=== PATIENT | male | born 1950 | race Caucasian/White ===

== ENCOUNTER → 2017-06-20 | Outpatient (CLI) | payer OTHER ==
[~2017-06-20] MED LIST: CIPR-249 PO; NEXI20CA PO; ROXI1TAB2 PO; SYNT50TA PO; TYLE325T5 PO
--- NOTE | 2017-06-20 14:03 | REP ---
Clinical: Varicose veins . Technique: Segura scale and color Doppler evaluation using linear high frequency transducer with reflux evaluation. Findings: Ultrasound examination of the right and left lower extremity deep venous structures from the common femoral vein to the popliteal vein demonstrates normal compressibility flow and wave patterns in response to respiration and augmentation. There is no evidence for deep venous thrombosis. Reflux study of the right lower extremity demonstrates nonocclusive thrombus in the right greater saphenous vein along with multiple large collateral vessels and severe reflux. Specifically, proximal greater saphenous vein measures 6.8 mm diameter with reflux duration 4.5 seconds; the mid greater saphenous vein measures 5.9 mm diameter with reflux duration 4.4 seconds; distal greater saphenous vein measures 7.7 mm with reflux duration 4.8 seconds. The lesser saphenous vein measures 5.1 mm diameter with reflux duration 5.1 seconds, and reflux was also identified through the deep system including common femoral vein, superficial femoral vein and popliteal vein. Reflux evaluation of the left lower extremity demonstrates minimal reflux through the common femoral vein and severe reflux through the greater saphenous vein and collateral vessels. Specifically, proximal greater saphenous vein measures 9.1 mm diameter with reflux duration 3.8 seconds; the mid greater saphenous vein measures 7.7 mm diameter with reflux duration 4.4 seconds; greater saphenous vein at the knee measures 7.4 mm with reflux duration 3.7 seconds. No reflux noted through the lesser saphenous vein, superficial femoral vein or popliteal vein. Impression: No evidence for deep venous thrombosis. Severe bilateral reflux as described above. Signed by Sebas Medina MD 06/20/2017 01:55 P
== END ==
LOC: M RAD 12:07
PROVIDERS: ATTEND Surgery Vascular Surgery
DX: I87.2 Venous insufficiency (chronic) (peripheral) (principal)

== ENCOUNTER 2017-09-28 13:32 | Day surgery (SDC) | payer OTHER ==
[~2017-09-28 13:32] MED LIST changes: -CIPR-249 PO; +LIDOCAINE W/EPINEPHRINE 1% 20ML VIAL As Ordered; -NEXI20CA PO; -ROXI1TAB2 PO; -SYNT50TA PO; -TYLE325T5 PO
[2017-09-28] MEDS: LR 1,000 ML IV ×2 (14:19)
[2017-09-28] MEDS ORDERED: MIDAZOLAM INJ 2 MG/2 ML VIAL (J2250) As Ordered ×2 (14:35)
[2017-09-28] MEDS ORDERED: LIDOCAINE 2% INJ 100 MG/5 ML SDV (FOR ANES.) As Ordered ×4 (14:35→15:37)
[2017-09-28] MEDS ORDERED: fentaNYL 100 MCG/2 ML INJECTION (J3010) As Ordered ×2 (14:35)
[2017-09-28] MEDS ORDERED: PROPOFOL 200 MG/20 ML VIAL As Ordered ×4 (14:35→15:37)
[2017-09-28] MEDS: LIDOCAINE 1% SDV INJ 30 ML VIAL As Ordered ×2 (14:44)
[2017-09-28] MEDS ORDERED: MORPHINE 4 MG/ML 1ML VIAL (J2270) As Ordered ×2 (16:59)
[2017-09-28] MEDS: PERCOCET 5MG/325MG TAB PO ×2 (17:15)
[2017-09-28] MEDS ORDERED: LR 1,000 ML IV ×2 (17:15)
== END 2017-09-28 18:09 | disposition home or self-care (01) ==
LOC: M SDC 13:32
DX: I83.813 Varicose veins of bilateral lower extremities with pain (principal); I87.2 Venous insufficiency (chronic) (peripheral); E03.9 Hypothyroidism, unspecified; I10 Essential (primary) hypertension; M54.9 Dorsalgia, unspecified; Z88.5 Allergy status to narcotic agent; Z79.899 Other long term (current) drug therapy; Z72.0 Tobacco use; Z85.46 Personal history of malignant neoplasm of prostate
CPT/HCPCS: 36475

== ENCOUNTER → 2017-10-07 | Outpatient (CLI) | payer OTHER | LOC: M RAD 10:00 | DX: I87.393 Chronic venous hypertension (idiopathic) with other complications of bilateral lower extremity (principal) | CPT/HCPCS: 93971 ==

== ENCOUNTER 2017-11-01 10:52 | Day surgery (SDC) | payer OTHER ==
[2017-11-01] MEDS: LR 1,000 ML IV (11:48)
[2017-11-01] MEDS: LIDOCAINE 1% SDV INJ 30 ML VIAL As Ordered (12:14)
[2017-11-01] MEDS ORDERED: PROPOFOL 200 MG/20 ML VIAL As Ordered ×2 (13:44→14:04)
[2017-11-01] MEDS ORDERED: fentaNYL 100 MCG/2 ML INJECTION (J3010) As Ordered ×2 (13:44→13:59)
[2017-11-01] MEDS ORDERED: MIDAZOLAM INJ 2 MG/2 ML VIAL (J2250) As Ordered (13:44)
[2017-11-01] MEDS: LIDOCAINE W/EPINEPHRINE 1% 20ML VIAL As Ordered (13:50)
[2017-11-01] MEDS ORDERED: PERCOCET 5MG/325MG TAB As Ordered (15:09)
[2017-11-01] MEDS: PERCOCET 5MG/325MG TAB PO ×2 (15:20→16:08)
== END 2017-11-01 16:50 | disposition home or self-care (01) ==
LOC: M SDC 10:52
DX: I83.812 Varicose veins of left lower extremity with pain (principal); I87.2 Venous insufficiency (chronic) (peripheral); E03.9 Hypothyroidism, unspecified; K22.2 Esophageal obstruction; Z85.46 Personal history of malignant neoplasm of prostate; Z79.899 Other long term (current) drug therapy; Z88.5 Allergy status to narcotic agent
CPT/HCPCS: 36475

== ENCOUNTER → 2017-11-11 | Outpatient (CLI) | payer OTHER | LOC: M RAD 10:01 | DX: I87.2 Venous insufficiency (chronic) (peripheral) (principal); I82.812 Embolism and thrombosis of superficial veins of left lower extremity | CPT/HCPCS: 93971 ==

== ENCOUNTER → 2022-08-18 | Outpatient (CLI) | payer MEDICARE ==
[~2022-08-18] MED LIST changes: +CIPR-249 PO; -LIDOCAINE W/EPINEPHRINE 1% 20ML VIAL As Ordered; +NEXI20CA PO; +PROHANCE 279.3MG/ML 15ML VIAL As Ordered ONE; +ROXI1TAB2 PO; +SYNT50TA PO; +TYLE325T5 PO
== END ==
LOC: M RAD 08:54
PROVIDERS: ATTEND Internal Medicine Hematology & Oncology
DX: D49.6 Neoplasm of unspecified behavior of brain (principal); G93.6 Cerebral edema; C34.91 Malignant neoplasm of unspecified part of right bronchus or lung; C13.9 Malignant neoplasm of hypopharynx, unspecified
CPT/HCPCS: 70553; A9576